=== PATIENT | male | born 1955 | race Caucasian/White ===

== ENCOUNTER → 2018-07-05 07:09 | Day surgery (SDC) | payer MEDICARE, MEDICAID ==
[~2018-07-05 07:09] MED LIST: Atracurium* 10 MG/ML 10 ML VIAL ONE; Buffered Lidocaine 0.9% SYRIN* 5 ML/SYR SYRINGE INTRADERM ONE; Buffered Lidocaine 0.9% SYRIN* 5 ML/SYR SYRINGE ONE; Dexamethasone TAB* 4 MG ONE; Dexamethasone TAB* 4 MG PO ONE; DiMENhydriNATE IV* 50 MG/ML VIAL IV PUSH PRN; DiMENhydriNATE IV* 50 MG/ML VIAL ONE; Famotidine IV* 10 MG/ML 2 ML (20 mg) IV ONE; Famotidine IV* 10 MG/ML 2 ML (20 mg) ONE; Flumazenil* 0.1 MG/ML 5 ML MDV ONE; Glycopyrrolate IV* 0.2 MG/ML 1 ML VIAL ONE; KETAMINE HCL* 50 MG/ML 10 ML VIAL ONE; Midazolam* 1 MG/ML 5 ML VIAL (5 MG) ONE; Morphine VIAL* 10 MG/ML 1 ML VIAL ONE; Morphine VIAL* 4 MG/ML VIAL (1 ml vial) IV PRN; Naloxone* 0.4 MG/ML 1 ML VIAL IV PRN; Neostigmine Methylsulfate* 1 MG/ML 10 ML VIAL (1 mg/ml) ONE; Ondansetron ODT TAB* 4 MG ONE; Ondansetron TAB* 4 MG PO ONE; PROCHLORPERAZINE INJ 5 MG/ML 2 ML VIAL IV PRN; Propofol* 10 MG/ML 20 ML BTL IV PUSH ONE; fentaNYL* 50 MCG/ML 2 ML VIAL (100 MCG VIAL) ONE; oxyCODONE/Acetamin 5/325 MG* TAB PO PRN
[2018-07-05] MEDS: fentaNYL* 50 MCG/ML 2 ML VIAL (100 MCG VIAL) IV PRN ×2 (10:43→10:51)
[2018-07-05 12:33] VITALS: BP 119/91
--- NOTE | 2018-07-06 02:08 | PRO ---
BRONCHOSCOPY REPORT: DATE OF PROCEDURE: 07/05/18 - [facility] PREPROCEDURAL DIAGNOSIS: Lung mass, lymphadenopathy. POSTPROCEDURAL DIAGNOSIS: Lung cancer. PROCEDURE PERFORMED: Bronchoscopy with endobronchial ultrasound-guided fine needle aspiration of the mediastinal nodes. ANESTHESIA: General anesthesia. ANESTHESIOLOGIST: Dr. Ash. DESCRIPTION OF PROCEDURE: Informed consent was obtained from the patient prior to the procedure after all the risks and benefits were thoroughly explained. Appropriate time-out was performed and agreed on by the attending staff. The patient was supine on the stretcher. Venodynes were placed and Luz Hugger was placed. The patient was intubated to facilitate general anesthesia with size 8.5 endotracheal tube. Flexible Olympus bronchoscope was inserted trough ET tube for airway inspection. Thick white secretions were noted in the trachea and the bronchial tree. Secretions were suctioned out. All airways on the right side were patent. No endobronchial lesions were noted on the right side. Bronchoscope was advanced into the left bronchial tree, which was then inspected. The patient was noted to have endobronchial narrowing, mucosal irregularity and endobronchial lesions in the left main stem bronchus at the level of left lower lobe bronchus. Left lower lobe bronchial segments were completely occluded and bronchoscope could not be advanced further. Thick white mucus plug was seen to be blocking airway leading to left lower lobe bronchus. Attempt at suctioning was resulting in bleeding of the mucosal lesions. The lesions started appearing about 2 to 3 cm from carinal level. Bronchoscope was then withdrawn and EBUS bronchoscope was then inserted. Given the left-sided lesion, station R4 lymph node which was significantly enlarged was accessed with 5 passes. Rapid onsite evaluation revealed malignant cells. Air-dried slides were also made. Specimen was placed in formalin for further testing. Bronchoscope was then withdrawn. Procedure was terminated. The patient tolerated the procedure very well. The patient was extubated and seen in Recovery in optimal condition. [id number]/[facility] #: [id number] [facility]
== END | disposition home or self-care (01) ==
LOC: OR 07:09
PROVIDERS: ATTEND Internal Medicine
DX: C77.1 Secondary and unspecified malignant neoplasm of intrathoracic lymph nodes (principal); J98.4 Other disorders of lung; Z87.891 Personal history of nicotine dependence; R06.02 Shortness of breath; I10 Essential (primary) hypertension; E11.9 Type 2 diabetes mellitus without complications; Z79.84 Long term (current) use of oral hypoglycemic drugs; E78.00 Pure hypercholesterolemia, unspecified; F41.8 Other specified anxiety disorders; Z51.0 Encounter for antineoplastic radiation therapy; C79.51 Secondary malignant neoplasm of bone; C34.92 Malignant neoplasm of unspecified part of left bronchus or lung; M25.111 Fistula, right shoulder; E11.40 Type 2 diabetes mellitus with diabetic neuropathy, unspecified
CPT/HCPCS: 77014; 77280; 77290; 77307; 77331; 77332; 77334; 77336; 77387; 77412; 78306; 81445; 88172; 88173; 88305; 88341; 88342; 88381; 99211; 99212; A9270-GY; A9503; G0463; J1240; J2250; J2270; J2704; J2710; J3010; J8540

== ENCOUNTER 2018-07-26 13:21 | Day surgery (SDC) | payer MEDICARE, MEDICAID ==
[~2018-07-26 13:21] MED LIST changes: -Atracurium* 10 MG/ML 10 ML VIAL ONE; -Buffered Lidocaine 0.9% SYRIN* 5 ML/SYR SYRINGE ONE; -Dexamethasone TAB* 4 MG ONE; -Dexamethasone TAB* 4 MG PO ONE; -DiMENhydriNATE IV* 50 MG/ML VIAL IV PUSH PRN; -DiMENhydriNATE IV* 50 MG/ML VIAL ONE; -Famotidine IV* 10 MG/ML 2 ML (20 mg) IV ONE; -Famotidine IV* 10 MG/ML 2 ML (20 mg) ONE; -Flumazenil* 0.1 MG/ML 5 ML MDV ONE; -Glycopyrrolate IV* 0.2 MG/ML 1 ML VIAL ONE; -KETAMINE HCL* 50 MG/ML 10 ML VIAL ONE; -Midazolam* 1 MG/ML 5 ML VIAL (5 MG) ONE; -Morphine VIAL* 10 MG/ML 1 ML VIAL ONE; -Morphine VIAL* 4 MG/ML VIAL (1 ml vial) IV PRN; -Naloxone* 0.4 MG/ML 1 ML VIAL IV PRN; -Neostigmine Methylsulfate* 1 MG/ML 10 ML VIAL (1 mg/ml) ONE; -Ondansetron ODT TAB* 4 MG ONE; -Ondansetron TAB* 4 MG PO ONE; -PROCHLORPERAZINE INJ 5 MG/ML 2 ML VIAL IV PRN; -Propofol* 10 MG/ML 20 ML BTL IV PUSH ONE; -fentaNYL* 50 MCG/ML 2 ML VIAL (100 MCG VIAL) ONE; -oxyCODONE/Acetamin 5/325 MG* TAB PO PRN
[2018-07-26] MEDS ORDERED: ceFAZolin 2 GM PREMIX in ORs 2 GM/50 ML BAG IVPB ONE (13:25)
[2018-07-26] MEDS ORDERED: Morphine PCA ADULT* 5 MG/ML 30 ML ONE ×2 (13:30→14:58)
[2018-07-26] MEDS ORDERED: Lidocaine 1% MPF wEPI 200,000* 30 ML SDV ONE (14:31)
[2018-07-26] MEDS ORDERED: fentaNYL* 50 MCG/ML 2 ML VIAL (100 MCG VIAL) ONE (14:40)
[2018-07-26] MEDS ORDERED: Midazolam* 1 MG/ML 2 ML VIAL (2 MG) ONE (14:40)
[2018-07-26] MEDS ORDERED: Propofol* 10 MG/ML 20 ML BTL IV PUSH ONE ×2 (14:53→15:37)
--- NOTE | 2018-07-26 16:01 | BRIEFOPN ---
Brief Operative Note - Surgery Procedures: Pre-OP Diagnoses: Lung Ca Post-op Diagnosis: same Procedure: Insertion of powerport Surgeon: Neha Asst: none Anethesia: local, MAC EBL: minimal IVF: minimal Specimen: none Drains: none 8Fr single lumen power port via L IJV
[2018-07-26 16:20] VITALS: BP 120/80
--- NOTE | 2018-07-27 10:37 | OP ---
CC: Dr. Wilma Musa; Dr. Star Vásquez; [facility] OPERATIVE REPORT: DATE OF OPERATION: 07/26/18 DATE OF : 51 SURGEON: Figueroa Solomon MD HEAVY LINE TECHNICIAN: None. ANESTHESIA: Local MAC. ECONOMIC HISTORIAN: Dr. Chinchilla. PRE-OP DIAGNOSIS: Lung cancer. POST-OP DIAGNOSIS: Lung cancer. OPERATIVE PROCEDURE: Insertion of PowerPort. DESCRIPTION OF PROCEDURE: The patient was identified in the preoperative area. He was brought to [facility] operating room, placed on the operating table in supine position. Preoperative antibiotics were gi manuel. Sequential devices were placed on bilateral lower extremities. Gentle sedation was delivered. The patient's left upper chest and neck were prepped and draped in the standard surgical fashion. A time-out was performed. The patient was placed in Trendelenburg position. Injection of lidocaine along the proposed site at the infraclavicular region was performed and I made an attempt to access the subclavian vein on the l eft. It did not prove simple and I decided to shift my attention to the neck quickly since the patie nt does have lung cancer and had previous radiation to this chest wall. Under ultrasound, we accessed the internal jugular vein. A wire was inserted appropriately into the superior vena cava. This was performed under fluoroscopy. We then dilated the vein and put a split-a way catheter. An 8-Macedonian tubing was tunneled from a separate incision site on the chest wall. This was brought in from the said chest wall incision to the stick site on the neck on the left. A pocket was also made at the site of the incision on the chest wall to hold the PowerPort. A tubing was placed through the split-away catheter, which was removed. Fluoroscopy assured its posit ioning. We then cut it to size, making sure it was in the appropriate spot in the superior vena cava and then attached it to the PowerPort along with the hub and placed into the pocket and sutured in t he pocket with 0-Prolene sutures. The wound was then irrigated and reapproximated with 3-0 Vicryl segura tures, followed by 4-0 Monocryl and placed a 4-0 Monocryl at the separate stick site of the neck and sterile dressing was applied. The patient tolerated the procedure well, was transferred to PACU in s table condition. [id number]/[facility] #: [id number]
== END 2018-07-26 17:13 | disposition home or self-care (01) ==
LOC: OR 13:21
PROVIDERS: ATTEND Surgery
DX: C34.12 Malignant neoplasm of upper lobe, left bronchus or lung (principal); Z87.891 Personal history of nicotine dependence; E11.9 Type 2 diabetes mellitus without complications; Z79.84 Long term (current) use of oral hypoglycemic drugs; I10 Essential (primary) hypertension; E78.00 Pure hypercholesterolemia, unspecified; F41.8 Other specified anxiety disorders
CPT/HCPCS: 76001; C1788; J0690; J1642; J2001; J2250; J2270; J2704; J3010

== ENCOUNTER 2018-09-10 17:36 | Inpatient (IN) | payer MEDICARE, MEDICAID ==
[2018-09-10] MEDS ORDERED: NS 0.9% 1000 ML*IV.FLUID IV ONE (17:58)
[2018-09-10 18:16] LABS: Hematocrit 35 % (42-52); Hemoglobin 11.8 g/dl (14.0-18.0); Mean Corpuscular HGB Conc 33 g/dl (31-36); Mean Corpuscular Hemoglobin 29 pg (27-31); Mean Corpuscular Volume 86 fL (80-94); Platelet Count 262 10^3/ul (150-450); Red Blood Count 4.11 10^6/ul (4.00-5.40); Red Cell Distribution Width 20 % (10.5-15); White Blood Count 9.1 10^3/ul (3.5-10.8)
[2018-09-10 18:28] LABS: Activated Partial Thrombo Time 33.9 seconds (26.0-36.3); INR 1.06 (0.77-1.02)
[2018-09-10 18:33] LABS: Albumin 3.5 g/dL (3.2-5.2); Albumin/Globulin Ratio 1.2 (1-3); BUN/Creatinine Ratio 22.8 (8-20); Calcium 9.2 mg/dL (8.6-10.3); EGFR Non-African American 98.4 (>60); Globulin 2.9 g/dL (2-4); Potassium 3.7 mmol/L (3.5-5.0); Total Bilirubin 0.7 mg/dL (0.2-1.0); Total Protein 6.4 g/dL (6.4-8.9)
--- OUTSIDE RECORDS SUMMARY | 2018-09-10 18:34 | XMS REPORT | Continuity of Care Document ---
:1955 External Reference #:[id number] Author Name Luzmaria Hernandez Care Team Providers Name Role Phone Wilma Musa MD Primary Care Physician Unavailable Payers Type Date Identification Numbers Payment Provider Subscriber Policy Number: [id number] Medicare Linda Canales PayID: [id number] [address] [place] [address] Expires: 2018 Policy Number: [id number] [place] Linda Canales PayID: [id number] [address] [place] [address] Policy Number: [id number] Medicaid Linda Canales Group Name: 1 1 [address] PayID: [id number] [place] [address] Advance Directives Description No Information Available Problems Date Description Provider Status Onset: 06/27/2018 Pathological fracture, right shoulder, Garth Martin MD Active initial encounter for fracture Onset: 09/05/2018 Low back pain Garth Martin MD Active Family History Date Family Member(s) Problem(s) Comments General Diabetes mother General Hypertension Mother Father Lung Cancer Father due to Lung Cancer () Father Smoker Mother Hypertension Mother due to Diabetes () Mother Diabetes Siblings 1 1 sister, was murdered Social History Type Date Description Comments Sex Unknown Lives With Spouse Occupation Retired Tobacco Use Start: Unknown End: Former Cigarette Smoker Smoked 1 ppd for 45 Unknown years Smoking Status Reviewed: 09/05/18 Former Cigarette Smoker Smoked 1 ppd for 45 years ETOH Use Never used alcohol Tobacco Use Start: 12/01/16 Patient is a former End: Unknown smoker Recreational Drug Use Denies Drug Use Exercise Type/Frequency Exercises sporadically Allergies, Adverse Reactions, Alerts Description No Known Drug Allergies Medications Medication Date Status Form Strength Qnty SIG Indications Ordering Provider Metformin HCL / Active Tablets 500mg Take 2 Tablets Unknown 0000 By Mouth Two Times Daily With Meals Pravastatin / Active Tablets 40mg take one Unknown Sodium 0000 tablet by mouth at bedtime Glyxambi / Active Tablets 10-5mg qd Unknown 0000 Aspirin / Active Tablets 81mg 1 by mouth Unknown 0000 DR every day Zofran / Active Tablets 8mg one by mouth Unknown 0000 every 6 hours as needed for nausea Oxycodone-Paulie / Active Tablets 10-325mg take 1 tablet Unknown taminophen 0000 by mouth every 6 hours as needed for pain Miralax / Active Packet 3350NF 17 gram with Unknown 0000 h20 once a day prn Morphine / Active Tablets 15mg take 1 tab by Unknown Sulfate 0000 mouth every 12 hours as needed for breakthrough pain Morphine / Active Tablets 30mg 1 tab bid (not Unknown Sulfate 0000 taking currently) Alfuzosin HCL / Active Tablets 10mg Take 1 Tablet Unknown ER 0000 ER 24HR By Mouth AT Bedtime Naproxen / Active Tablets 500mg 1 by mouth Unknown 0000 twice a day as needed pain Oxycodone HCL / Hx Tablets 5mg 1 tabs by Unknown 0000 - mouth every 07/14/ 4-6 hours as 2018 needed Immunizations Description No Information Available Vital Signs Date Vital Result Comment 09/05/2018 10:34am Height 74 inches 6'2" Weight 200.00 lb BP Systolic 124 mmHg BP Diastolic 66 mmHg Respiratory Rate 17 /min Body Temperature 96.0 F Pain Level 8 BMI (Body Mass Index) 25.7 kg/m2 08/06/2018 1:13pm Height 74 inches 6'2" Weight 200.00 lb BP Systolic 128 mmHg BP Diastolic 70 mmHg Respiratory Rate 18 /min Pain Level 6 BMI (Body Mass Index) 25.7 kg/m2 07/22/2018 11:06am Height 74 inches 6'2" Weight 199.00 lb Heart Rate 84 /min BP Systolic Sitting 112 mmHg BP Diastolic Sitting 78 mmHg Respiratory Rate 18 /min Body Temperature 98.0 F BMI (Body Mass Index) 25.5 kg/m2 07/15/2018 11:27am Height 74 inches 6'2" Weight 199.00 lb Heart Rate 72 /min BP Systolic Sitting 104 mmHg BP Diastolic Sitting 62 mmHg Respiratory Rate 14 /min O2 % BldC Oximetry 98 % BMI (Body Mass Index) 25.5 kg/m2 06/28/2018 10:58am Height 74 inches 6'2" Weight 202.12 lb Heart Rate 92 /min BP Systolic Sitting 112 mmHg BP Diastolic Sitting 72 mmHg Respiratory Rate 14 /min O2 % BldC Oximetry 98 % BMI (Body Mass Index) 25.9 kg/m2 Neck Circumference in inches 17.5 06/27/2018 10:28am Height 74 inches 6'2" Weight 200.00 lb Heart Rate 80 /min BP Systolic 142 mmHg BP Diastolic 88 mmHg Body Temperature 97.2 F Pain Level 10 BMI (Body Mass Index) 25.7 kg/m2 Results Test Date Facility Test Result H/L Range Note Laboratory test 07/26/2018 [facility] Point of Care 190 mg/dL High 70-100 [address] [place] [address] [phone] Laboratory test 07/05/2018 [facility] Point of Care 193 mg/dL High 70-100 [address] [place] [address] [phone] Laboratory test 07/05/2018 [facility] Cytology SEE RESULT [address] [employer] [place] [address] [phone] Lung Cancer 07/05/2018 [facility] LNGPR Result See Comment [address] [address] [phone] LNGPR Result See Comment 5 LNGPR Interpretation See Comment 6 LNGPR Additional Information See Comment 7 LNGPR Specimen Cells LNGPR Tissue Id [id number] LNGPR Released By See Comment 8 Laboratory test 07/05/2018 [facility] Point of Care 204 mg/dL High 70-100 [address] [place] [address] [phone] 1 Toe Laster: [id number] 2 Toe Laster: [id number] 3 SEE RESULT BELOW Name: LINDA CANALES : [address]: Ira Mariano MD Acct: [id number] Unit: [id number] AGE: 63 Location: OR Re07/05/18 SEX: M Status: REG SDC SPEC: [id number] ELIOT: 07/05/[address] [facility] [address]: Ira Mariano MD REQ: [id number] RECD: 07/05/18 STATUS: SOUT _ ORDERED: FNA-IMG GUID BX, LEVEL 4, CYTO ADEQ-1ST P, IMMUNO-FIRST, IMMUNO- ADDL/2 Lung Panel with Rearrangement Tumor has been performed at [place], [place]. 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 specimen is ALK, BRAF, EGFR, ERBB2, HRAS, KRAS, MET, and NRAS wild-type). No reportable fusions were identified involving the ALK, RET, ROS1, or NTRK1 genes. Interpretation See note [1] below. ASSOCIATIONS BETWEEN GENE MUTATIONS/REARRANGEMENTS AND LUNG CANCER Current data suggests that the efficacy of targeted therapies in patients with non-small cell lung cancer is limited to tumors with mutations or rearrangements in certain genes. Thus, the absence of a detectable mutation and rearrangement within this tumor suggests that targeted therapies to the listed genes may have limited therapeutic value for this patient (1-7). REFERENCES 1. Mol Diagn. 2013 Mar;15(4):415-53 (PMID 89715850) 2. Oncologist. 2016 Feb;21(6):684-91 (PMID [id number]) 3. Lancet Oncol. 2016 January;17(5):642-50 (PMID 68241108) 4. Lancet Oncol. 2016 Mar;17(7):984-93 (PMID 18401153) 5. Cancer Discov. 2014;5(8):842-9 (PMID 24601467) 6. Cancer Discov. 2014;5(8):850-9 (PMID 25501919) 7. Nina. Med. 2013 Jul;19(11):1469-03 (PMID 20913301) CONTINUED ON NEXT PAGE DEPARTMENT OF PATHOLOGY, [address] [place] [address] Imer Arechiga M.D. Director [facility] # [id number] RUN DATE: 07/25/18 [facility] LAB LIVE PAGE 2 Patient: LINAD CANALES [id number] (Continued) ADDENDUM (Continued) ADDITIONAL INFORMATION Microscopic examination was performed by a pathologist to identify areas of tumor for enrichment by macrodissection. Next generation sequencing was performed to test for the presence of a mutation within targeted regions of the following genes: EGFR , BRAF, KRAS, HRAS, NRAS, ALK, ERBB2, and MET (exon 14 skipping mutations only). Next generation sequencing was performed to test for the presence of a rearrangement/fusion involving the ALK, RET, ROS1 or NTRK1 genes. Mutation nomenclature is based on build GRCh37 (hg19). Rearrangement nomenclature is based on a custom reference sequence using GRCh37 (hg19). For details about gene reference transcripts (GenBank accession numbers) and additional information about this test, see [email or web address] - A First of Its Kind Flip Flop (Test ID LNGPR). CLINICAL CORRELATIONS Test results should be interpreted in context of clinical findings, tumor sampling, histopathology, and other laboratory data. If results obtained do not match other clinical or laboratory findings, please contact the laboratory for possible interpretation. Misinterpretation of results may occur if the information provided is inaccurate or incomplete. This test cannot differentiate between somatic and germline alterations. Additional testing may be necessary to clarify the significance of results if there is a potential hereditary risk. The presence or absence of a mutation or fusion may not be predictive of response to therapy in all patients. TECHNICAL LIMITATIONS This test does not detect large insertions, deletions, or duplications or genomic copy number variants (such as amplification). This assay has been shown to detect >99% of single base substitutions and >99 % of deletions/insertions (up to 50 bp) at >5% allele frequency, respectively. A negative (wild type) result does not rule out the presence of a mutation or rearrangement resulting in a targeted fusion that may be present but below the limits of detection of this assay. The analytical sensitivity of this assay is 5% with a minimum coverage of 100X for mutations and 5% with a minimum of 30 targeted fusion reads for fusions. Rare polymorphisms may be present that could lead to false negative or false positive results. CONTINUED ON NEXT PAGE DEPARTMENT OF PATHOLOGY, [address] [place] [address] Imer Arechiga M.D. Director [facility] # [id number] RUN DATE: 07/25/18 [facility] LAB LIVE PAGE 3 Patient: LINDA CANALES J [id number] (Continued) ADDENDUM (Continued) Additional Information CLINICAL TRIALS Possible clinical trials of benefit for this patient can befound at the following sites: 1) ClinicalTrials.gov:www.clinicaltrials.gov/ct2/search/advanced 2) [facility]: www.[place]/research/clinical-trials/ 3) National Cancer Royal:www.cancer.gov/clinicaltrials/search Specimen: Cells Tissue ID: [id number] Released By Jessica France M.D. Addendum Signed (signature on file) Frida Guerrero MD 05/04 1123 Addendum: The following immunochemical stains are performed with appropriate controls on formalin fixed cell block material. CK5/6 positive P63 focal positive TTF-1 negative These findings support the above render diagnosis. Additional studies including gene sequencing studies for targeted therapies on air dried smears is pending and will be reported in an addendum. Addendum Signed (signature on file) Imer Arechiga MD 1440 FINAL DIAGNOSIS Lymph node, R4, Endobronchial ultrasound guided fine needle aspiration: --Malignant. CONTINUED ON NEXT PAGE DEPARTMENT OF PATHOLOGY, [address] [place] [address] Imer Arechiga M.D. Director [facility] # [id number] RUN DATE: 07/25/18 [facility] LAB LIVE PAGE 4 Patient: LINDA CANALES [id number] (Continued) FINAL DIAGNOSIS (Continued) --Metastatic keratinizing squamous cell carcinoma. A cell block was prepared in the evaluation of this specimen. Smears and cell block reveal similar findings. 1. LYMPH NODE - US GUIDED ENDOBRONCHIAL R-4 LYMPH NODE FINE NEEDLE ASPIRATION CLINICAL HISTORY R-4 Lymph node. IMMEDIATE INTERPRETATION Pass 1 2-adequate, pass 3-5 for additional material GROSS DESCRIPTION US guided endobronchial fine needle aspiration x 5 pass(es) with 4 alcohol fixed slides, 7 Air dried slide(s) and needle rinse in formalin for cell block. Signed by and Reported on: Frida Guerrero MD 07/05/18 1558 END OF REPORT DEPARTMENT OF PATHOLOGY, [address] [place] [address] Imer Arechiga M.D. 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 specimen is ALK, BRAF, EGFR, ERBB2, HRAS, KRAS, MET, and NRAS wild-type). No reportable fusions were identified involving the ALK, RET, ROS1, or NTRK1 genes. 6 ASSOCIATIONS BETWEEN GENE MUTATIONS/REARRANGEMENTS AND LUNG CANCER Current data suggests that the efficacy of targeted therapies in patients with non-small cell lung cancer is limited to tumors with mutations or rearrangements in certain genes. Thus, the absence of a detectable mutation and rearrangement within this tumor suggests that targeted therapies to the listed genes may have limited therapeutic value for this patient (1-7). REFERENCES 1. Mol Diagn. 2013 Kunal;15(4):415-53 (PMID 40163780) 2. Oncologist. 2016 Feb;21(6):684-91 (PMID 85290348) 3. Lancet Oncol. 2016 January;17(5):642-50 (PMID 96004377) 4. Lancet Oncol. 2016 Mar;17(7):984-93 (PMID 84762985) 5. Cancer Discov. 2014;5(8):842-9 (PMID 27552320) 6. Cancer Discov. 2014;5(8):850-9 (PMID 25922405) 7. Nina. Med. 2012;19(11):3699-80 (PMID 00303784) ADDITIONAL INFORMATION Microscopic examination was performed by a pathologist to identify areas of tumor for enrichment by macrodissection. Next generation sequencing was performed to test for the presence of a mutation within targeted regions of the following genes: EGFR, BRAF, KRAS, HRAS, NRAS, ALK, ERBB2, and MET (exon 14 skipping mutations only). Next generation sequencing was performed to test for the presence of a rearrangement/fusion involving the ALK, RET, ROS1 or NTRK1 genes. Mutation nomenclature is based on build GRCh37 (hg19). Rearrangement nomenclature is based on a custom reference sequence using GRCh37 (hg19). For details about gene reference transcripts (GenBank accession numbers) and additional information about this test, see [email or web address] (Test ID LNGPR). CLINICAL CORRELATIONS Test results should be interpreted in context of clinical findings, tumor sampling, histopathology, and other laboratory data. If results obtained do not match other clinical or laboratory findings, please contact the laboratory for possible interpretation. Misinterpretation of results may occur if the information provided is inaccurate or incomplete. This test cannot differentiate between somatic and germline alterations. Additional testing may be necessary to clarify the significance of results if there is a potential hereditary risk. The presence or absence of a mutation or fusion may not be predictive of response to therapy in all patients. TECHNICAL LIMITATIONS This test does not detect large insertions, deletions, or duplications or genomic copy number variants (such as amplification). This assay has been shown to detect >99% of single base substitutions and >99% of deletions/insertions (up to 50 bp) at >5% allele frequency, respectively. A negative (wild type) result does not rule out the presence of a mutation or rearrangement resulting in a targeted fusion that may be present but below the limits of detection of this assay. The analytical sensitivity of this assay is 5% with a minimum coverage of 100X for mutations and 5% with a minimum of 30 targeted fusion reads for fusions. Rare polymorphisms may be present that could lead to false negative or false positive results. TEST CLASSIFICATION This test was developed and its performance characteristics determined by [facility] in a manner consistent with CLIA requirements. This test has not been cleared or approved by the U.S. Food and Drug Administration. 7 CLINICAL TRIALS Possible clinical trials of benefit for this patient can be found at the following sites: 1) ClinicalTrials.gov: www.clinicaltrials.gov/ct2/search/advanced 2) [facility]: www.[facility]/research/clinical-trials/ 3) National Cancer Royal: www.cancer.gov/clinicaltrials/search 8 RESULT: Jessica France M.D. Test Performed by: [place] [address] 9 Toe Laster: [id number] Procedures Date Code Description Status 07/26/2018 01713 Fluoroscopic Guidance For Cent Completed 07/26/2018 49249 Ultrasound Guidance For Vascular Access Completed 07/26/2018 73538 Insertion Tunneled Cent Venous Cathr W Subcut Port 5 Yrs Completed Or Oldr 07/05/2018 50577 With Endobronchial Ultrasound Guided Completed Encounters Type Date Location Provider Dx Diagnosis Office Visit 08/06/2018 Orthopedic Garth Martin, M84.411D Pathological 1:15p [facility] fracture, r shoulder, subs for fx w routn heal Office Visit 07/22/2018 Surgical Figueroa Solomon, C34.12 Malignant neoplasm 11:00a [facility], FACS of upper lobe, left bronchus or lung Office Visit 07/15/2018 Pulmonology And Ira Mariano, C34.90 Malignant neoplasm 11:45a [facility] [place] [facility] uns bronchus or lung Z87.891 Personal history of nicotine dependence Office Visit 06/28/2018 11:00a Pulmonology And Ira R59.0 Localized [facility] MD García enlarged lymph [employer] nodes J98.4 Other disorders of lung Z87.891 Personal history of nicotine dependence Office Visit 06/27/2018 Orthopedic Gatrh Martin, M84.411A Pathological 10:00a Services Of fracture, right C.M.A. shoulder, init for fx Plan of Treatment 09/05/2018 - Garth Martin, MDM84.411D Pathological fracture, right shoulder, subsequent encounterReferral:Star Willett MD, Surgery,OrthopedicCarmody, MD Ranjana, Surgery,OrthopedicFollow up:Follow up: as rxybmtH17.5 Low back painNew Xrays:SP Lumbarsacral 4+ VWS, Ordered: 09/05/18
[2018-09-10] MEDS ORDERED: Acetaminophen TAB* 325 MG PO ONE (19:16)
[2018-09-10 19:36] LABS: Immature Granulocytes 9 % (0-9); Monocytes % 10 %; Neutrophil % 75 %
[2018-09-10 19:37] LABS: Lymphocytes % 6 %
[2018-09-10 19:39] LABS: Polychromasia 1+
[2018-09-10 19:44] LABS: ABS Neutrophils 7.6 10^3/ul (1.5-7.7)
[2018-09-10] MEDS ORDERED: Piperacillin/Tazobac ADVAN(*) 3.375 GM in NS 0.9% 100 ML* 100 ML IVPB ONE ×2 (19:46→21:26)
[2018-09-10] MEDS ORDERED: Vancomycin(*) 1,000 MG VIAL IVPB SCH (20:00)
--- NOTE | 2018-09-10 20:11 | ED ---
HPI Febrile Illness - HPI Summary HPI Summary: Patient with history of lung cancer, bone cancer receiving chemotherapy treatment complains of feeling lightheaded, nausea and fever up to 101 starting today. Triage blood pressure very low at 67/51. Denies cough, sore throat, COLON , neck stiffness, CP, SOB, V/D, abdominal pain, change in urine, change in BM. Medical history is stage IV lung cancer, bone cancer. Patient receiving chemotherapy, due for third chemotherapy treatment tomorrow. Chemotherapy treatment every 2 weeks. No antipyretic taken today. - History of Current Complaint Chief Complaint: EDFever Time Seen by Provider: 09/10/18 17:47 Hx Obtained From: Patient, Family/Electrical Worker Onset/Duration: Started Hours Ago Timing: Constant Initial Severity: Moderate Current Severity: Moderate Pain Scale Used: 0-10 Numeric Aggravating Factors: Nothing Alleviating Factors: Nothing - Chronic pain Associated Signs and Symptoms: Nausea - Allergy/Home Medications Allergies/Adverse Reactions: Allergies Allergy/AdvReac Type Severity Reaction Status Date / Time No Known Allergies Allergy Verified 07/26/18 14:01 PMH/Surg Hx/FS Hx/Imm Hx Endocrine/Hematology History: Reports: Hx Diabetes - type 2 Denies: Hx Bone Marrow Disease, Hx Sickle Cell Disease, Hx Thyroid Disease, Hx Anemia Cardiovascular History: Reports: Hx Hypertension Denies: Hx Pacemaker/ICD Respiratory History: Reports: Hx Chronic Obstructive Pulmonary Disease (COPD), Other Respiratory Problems/Disorders - MALIGNANT NEOPLASM LEFT LUNG Denies: Hx Asthma GI History: Denies: Hx Ulcer Musculoskeletal History: Reports: Other Musculoskeletal History - BONE LESION RIGHT SHOULDER Denies: Hx Osteoporosis Sensory History: Reports: Hx Contacts or Glasses - GLASSES Denies: Hx Cataracts, Hx Glaucoma, Hx Hearing Aid Opthamlomology History: Reports: Hx Contacts or Glasses - GLASSES Denies: Hx Cataracts, Hx Glaucoma Neurological History: Reports: Hx Migraine - once in a while, Hx Nerve Disease - diabetic neuropathy Comment Only: Other Neuro Impairments/Disorders - PERIPHERAL NEUROPATHY R/T DM Psychiatric History: Reports: Hx Anxiety, Hx Depression Denies: Hx Panic Disorder - Cancer History Cancer Type, Location and Year: BONE Hx Chemotherapy: No - Surgical History Surgery Procedure, Year, and Place: TONSILECTOMY, TEETH EXTRACTED Hx Anesthesia Reactions: No Infectious Disease History: No Infectious Disease History: Denies: Hx Clostridium Difficile, Hx Hepatitis, Hx Human Immunodeficiency Virus (HIV), Hx of Known/Suspected MRSA, Hx Shingles, Hx Tuberculosis, Traveled Outside the [place] in Last 30 Days - Social History Alcohol Use: None Substance Use Type: Reports: None Substance Use Comment - Amount & Last Used: morphine and oxycodone for cancer pain Hx Tobacco Use: Yes Smoking Status (MU): Former Smoker Type: Cigarettes Amount Used/How Often: 1ppd 45 years Length of Time of Smoking/Using Tobacco: 45 YRS Have You Smoked in the Last Year: No Review of Systems Positive: Fever Eyes: Negative ENT: Negative Cardiovascular: Negative Respiratory: Negative Gastrointestinal: Negative Genitourinary: Negative Musculoskeletal: Negative Skin: Negative Neurological: Negative Psychological: Normal All Other Systems Reviewed And Are Negative: Yes Physical Exam - Summary Physical Exam Summary: Physical exam unremarkable. Triage Information Reviewed: Yes Vital Signs On Initial Exam: Initial Vitals Temp Pulse Resp BP Pulse Ox 98.1 F 114 20 63/43 94 09/10/18 17:39 09/10/18 17:39 09/10/18 17:39 09/10/18 17:39 09/10/18 17:39 Vital Signs Reviewed: Yes Appearance: Positive: Well-Appearing Skin: Positive: Warm Head/Face: Positive: Normal Head/Face Inspection Eyes: Positive: Normal ENT: Positive: Normal ENT inspection Neck: Positive: Supple Respiratory/Lung Sounds: Positive: Clear to Auscultation Cardiovascular: Positive: Normal Abdomen Description: Positive: Nontender Musculoskeletal: Positive: Normal Neurological: Positive: Normal Psychiatric: Positive: Normal AVPU Assessment: Alert - [place] Coma Scale Best Eye Response: 4 - Spontaneous Best Motor Response: 6 - Obeys Commands Best Verbal Response: 5 - Oriented Coma Scale Total: 15 Diagnostics - Vital Signs Vital Signs Temp Pulse Resp BP Pulse Ox 09/10/18 19:10 100.6 F 09/10/18 18:46 103 20 80/64 95 09/10/18 18:38 103 21 79/59 97 09/10/18 18:28 103 20 75/52 97 09/10/18 18:22 104 23 66/47 96 09/10/18 18:21 107 19 66/48 96 09/10/18 18:19 106 25 65/47 96 09/10/18 18:16 109 25 67/45 97 09/10/18 18:01 108 25 69/54 96 09/10/18 18:00 107 21 95 09/10/18 17:57 108 64/48 96 09/10/18 17:56 109 70/54 96 09/10/18 17:52 112 95 09/10/18 17:47 67/51 09/10/18 17:39 98.1 F 114 20 63/43 94 - Laboratory Lab Results: Lab Results 09/10/18 09/10/18 09/10/18 Range/Units 17:49 18:08 18:08 WBC 9.1 (3.5-10.8) 10^3/ul RBC 4.11 (4.00-5.40) 10^6/ul Hgb 11.8 L (14.0-18.0) g/dl Hct 35 L (42-52) % MCV 86 (80-94) fL MCH 29 (27-31) pg MCHC 33 (31-36) g/dl RDW 20 H (10.5-15) % Plt Count 262 (150-450) 10^3/ul MPV 7.0 L (7.4-10.4) fL Neut % (Auto) Not Reportable Lymph % (Auto) Not Reportable [place] % (Auto) Not Reportable Eos % (Auto) Not Reportable Baso % (Auto) Not Reportable Absolute Neuts (auto) Not Reportable Absolute Lymphs (auto) Not Reportable Absolute Monos (auto) Not Reportable Absolute Eos (auto) Not Reportable Absolute Basos (auto) Not Reportable Absolute Nucleated RBC Not Reportable Immature Gran % 9 (0-9) % Neutrophils % 75 % Band Neutrophils % 9 H (0-8) % Lymphocytes % 6 % Reactive Lymphs % Not Reportable Monocytes % 10 % Nucleated RBC % Not Reportable Abs Neuts (Manual) 7.6 (1.5-7.7) 10^3/ul Abs Lymphs (Manual) 0.6 L (1.0-4.8) 10^3/ul Abs Monocytes (Manual) 0.9 H (0-0.8) 10^3/ul Normal RBC Morphology Not Reportable Polychromasia 1+ Anisocytosis 2+ INR (Anticoag Therapy) 1.06 H (0.77-1.02) APTT 33.9 (26.0-36.3) seconds Sodium (135-145) mmol/L Potassium (3.5-5.0) mmol/L Chloride (101-111) mmol/L Carbon Dioxide (22-32) mmol/L Anion Gap (2-11) mmol/L BUN (6-24) mg/dL Creatinine (0.67-1.17) mg/dL Est GFR ( Amer) (>60) Est GFR (Non-Af Amer) (>60) BUN/Creatinine Ratio (8-20) Glucose (70-100) mg/dL POC Glucose (mg/dL) 262 H (70-100) mg/dL Lactic Acid (0.5-2.0) mmol/L Calcium (8.6-10.3) mg/dL Total Bilirubin (0.2-1.0) mg/dL AST (13-39) U/L ALT (7-52) U/L Alkaline Phosphatase (34-104) U/L Troponin I (<0.04) ng/mL C-Reactive Protein (<8.01) mg/L B-Natriuretic Peptide (<=100) pg/mL Total Protein (6.4-8.9) g/dL Albumin (3.2-5.2) g/dL Globulin (2-4) g/dL Albumin/Globulin Ratio (1-3) Influenza A (Rapid) (Negative) Influenza B (Rapid) (Negative) 09/10/18 09/10/18 09/10/18 Range/Units 18:08 18:08 18:08 WBC (3.5-10.8) 10^3/ul RBC (4.00-5.40) 10^6/ul Hgb (14.0-18.0) g/dl Hct (42-52) % MCV (80-94) fL MCH (27-31) pg MCHC (31-36) g/dl RDW (10.5-15) % Plt Count (150-450) 10^3/ul MPV (7.4-10.4) fL Neut % (Auto) Lymph % (Auto) [place] % (Auto) Eos % (Auto) Baso % (Auto) Absolute Neuts (auto) Absolute Lymphs (auto) Absolute Monos (auto) Absolute Eos (auto) Absolute Basos (auto) Absolute Nucleated RBC Immature Gran % (0-9) % Neutrophils % % Band Neutrophils % (0-8) % Lymphocytes % % Reactive Lymphs % Monocytes % % Nucleated RBC % Abs Neuts (Manual) (1.5-7.7) 10^3/ul Abs Lymphs (Manual) (1.0-4.8) 10^3/ul Abs Monocytes (Manual) (0-0.8) 10^3/ul Normal RBC Morphology Polychromasia Anisocytosis INR (Anticoag Therapy) (0.77-1.02) APTT (26.0-36.3) seconds Sodium 130 L (135-145) mmol/L Potassium 3.7 (3.5-5.0) mmol/L Chloride 98 L (101-111) mmol/L Carbon Dioxide 23 (22-32) mmol/L Anion Gap 9 (2-11) mmol/L BUN 18 (6-24) mg/dL Creatinine 0.79 (0.67-1.17) mg/dL Est GFR ( Amer) 119.1 (>60) Est GFR (Non-Af Amer) 98.4 (>60) BUN/Creatinine Ratio 22.8 H (8-20) Glucose 268 H (70-100) mg/dL POC Glucose (mg/dL) (70-100) mg/dL Lactic Acid 1.6 (0.5-2.0) mmol/L Calcium 9.2 (8.6-10.3) mg/dL Total Bilirubin 0.70 (0.2-1.0) mg/dL AST 8 L (13-39) U/L ALT 8 (7-52) U/L Alkaline Phosphatase 71 (34-104) U/L Troponin I 0.01 (<0.04) ng/mL C-Reactive Protein 150.00 H (<8.01) mg/L B-Natriuretic Peptide 126 H (<=100) pg/mL Total Protein 6.4 (6.4-8.9) g/dL Albumin 3.5 (3.2-5.2) g/dL Globulin 2.9 (2-4) g/dL Albumin/Globulin Ratio 1.2 (1-3) Influenza A (Rapid) (Negative) Influenza B (Rapid) (Negative) 09/10/18 Range/Units 18:27 WBC (3.5-10.8) 10^3/ul RBC (4.00-5.40) 10^6/ul Hgb (14.0-18.0) g/dl Hct (42-52) % MCV (80-94) fL MCH (27-31) pg MCHC (31-36) g/dl RDW (10.5-15) % Plt Count (150-450) 10^3/ul MPV (7.4-10.4) fL Neut % (Auto) Lymph % (Auto) [place] % (Auto) Eos % (Auto) Baso % (Auto) Absolute Neuts (auto) Absolute Lymphs (auto) Absolute Monos (auto) Absolute Eos (auto) Absolute Basos (auto) Absolute Nucleated RBC Immature Gran % (0-9) % Neutrophils % % Band Neutrophils % (0-8) % Lymphocytes % % Reactive Lymphs % Monocytes % % Nucleated RBC % Abs Neuts (Manual) (1.5-7.7) 10^3/ul Abs Lymphs (Manual) (1.0-4.8) 10^3/ul Abs Monocytes (Manual) (0-0.8) 10^3/ul Normal RBC Morphology Polychromasia Anisocytosis INR (Anticoag Therapy) (0.77-1.02) APTT (26.0-36.3) seconds Sodium (135-145) mmol/L Potassium (3.5-5.0) mmol/L Chloride (101-111) mmol/L Carbon Dioxide (22-32) mmol/L Anion Gap (2-11) mmol/L BUN (6-24) mg/dL Creatinine (0.67-1.17) mg/dL Est GFR ( Amer) (>60) Est GFR (Non-Af Amer) (>60) BUN/Creatinine Ratio (8-20) Glucose (70-100) mg/dL POC Glucose (mg/dL) (70-100) mg/dL Lactic Acid (0.5-2.0) mmol/L Calcium (8.6-10.3) mg/dL Total Bilirubin (0.2-1.0) mg/dL AST (13-39) U/L ALT (7-52) U/L Alkaline Phosphatase (34-104) U/L Troponin I (<0.04) ng/mL C-Reactive Protein (<8.01) mg/L B-Natriuretic Peptide (<=100) pg/mL Total Protein (6.4-8.9) g/dL Albumin (3.2-5.2) g/dL Globulin (2-4) g/dL Albumin/Globulin Ratio (1-3) Influenza A (Rapid) Negative (Negative) Influenza B (Rapid) Negative (Negative) Result Diagrams: 09/10/18 18:08 09/10/18 18:08 Lab Statement: Any lab studies that have been ordered have been reviewed, and results considered in the medical decision making process. Course/Dx - Course Course Of Treatment: Patient with history of lung cancer, bone cancer receiving chemotherapy treatment complains of feeling lightheaded, nausea and fever up to 101 starting today. Triage blood pressure very low at 67/51. Denies cough, sore throat, COLON, neck stiffness, CP, SOB, V/D, abdominal pain, change in urine, change in BM. Medical history is stage IV lung cancer, bone cancer. Patient receiving chemotherapy, due for third chemotherapy treatment tomorrow. Chemotherapy treatment every 2 weeks. No antipyretic taken today. Physical exam unremarkable. Patient hypotensive. Vital signs otherwise within normal limits. EKG of 268. Lactic normal. Normal white count. EKG is a sinus tachycardia. Chest x-ray indicates consolidation left lower lobe consistent with diagnosis of cancer, possible superimposed pneumonia. Patient remains hypotensive after 3 L. Patient has history of lung cancer followed by Dr. Vásquez. Discussed patient with Dr. Vásquez, no known source of fever. Patient remains consistently hypotensive. Dr. Vásquez recommended getting cortisone level , TSH and freeT4 levels, and administering dexamethasone 6 mg IV x 1. Admitted to [facility] by Dr. Vásquez. - Diagnoses Provider Diagnoses: Hypotension, Fever Discharge - Sign-Out/Discharge Documenting (check all that apply): Patient Departure - Discharge Plan Condition: Fair Disposition: ADMITTED TO [facility] - Billing Disposition and Condition Condition: FAIR Disposition: Admitted to [facility]
[2018-09-10] MEDS: Dexamethasone IV* 4 MG/ML 1 ML (4 MG) IV SLOW PU SCH (20:56)
[2018-09-10] MEDS ORDERED: methylPREDNISolone SOD 40 MG* 1 ML VIAL IV SCH (21:00)
[2018-09-10] MEDS ORDERED: Dexamethasone IV* 6 MG in NS 0.9% 50 ML* 50 ML IVPB SCH (21:00)
[2018-09-10] MEDS ORDERED: Vancomycin(*) 1,250 MG IV x ONCE IVPB ONE ×2 (21:00)
[2018-09-10] MEDS ORDERED: Acetaminophen TAB* 325 MG PO PRN (21:03)
[2018-09-10] MEDS ORDERED: Ondansetron INJ* 2 MG/ML VIAL IV PRN (21:03)
[2018-09-10] MEDS ORDERED: oxyCODONE/Acetamin 5/325 MG* TAB PO PRN (21:03)
[2018-09-10] MEDS ORDERED: Magnesium Hydroxide LIQ* 30 ML UDC PO PRN (21:03)
[2018-09-10 21:05] LABS: TSH (Thyroid Stimulating Horm) 3.2 mcIU/mL (0.34-5.60)
[2018-09-10 21:07] LABS: Free T4 0.88 ng/dL (0.61-1.12)
[2018-09-10] MEDS ORDERED: Dextrose 50% Syringe 50 ML* 25 GM/50 ML SYRINGE IV PUSH PRN (21:13)
[2018-09-10] MEDS ORDERED: NS 0.9% 1000 ML* 1,000 ML IV SCH (21:15)
[2018-09-10] MEDS ORDERED: Zosyn per Pharmacy* NOTE FOLLOW UP SCH (22:00)
[2018-09-10] MEDS: NS 0.9% 1000 ML* 1,000 ML IV SCH (22:01)
[2018-09-10 22:08] LABS: Testosterone 73.19 ng/dL (240-950)
[2018-09-10 22:42] LABS: Urine Appearance Cloudy; Urine Bacteria Absent (Absent); Urine Bilirubin Negative (Negative); Urine Blood 3+ (Negative); Urine Color Yellow; Urine Glucose 3+(>=500 mg/dL) (Negative); Urine Ketones Negative (Negative); Urine Nitrite Negative (Negative); Urine Protein 1+(30 mg/dL) (Negative); Urine Red Blood Cell 3+(>10/hpf) (Absent); Urine Specific Gravity 1.036 (1.010-1.030); Urine Urobilinogen Negative (Negative); Urine White Blood Cell Absent (Absent)
[2018-09-10] MEDS: Enoxaparin(*) 40 MG/0.4 ML SYR SUBCUT SCH (22:52)
--- NOTE | 2018-09-10 23:21 | HP ---
HISTORY AND PHYSICAL: DATE OF ADMISSION: 09/10/18 REASON FOR ADMISSION: Hypotension. IDENTIFICATION: A 63-year-old male with metastatic oon-xkcxt-tyac lung cancer, currently on chemotherapy with carboplatin, paclitaxel, and pembrolizumab. HISTORY OF PRESENT ILLNESS: Mr. Canales is a 63-year-old male on chemotherapy with carboplatin, pemetrexed, and paclitaxel. He has had 2 cycles and is scheduled for cycle #3 tomorrow. Seen in clinic last week and was doing reasonably well. He has metastatic disease to the shoulder and has significant shoulder pain, but that was stable. He did complain of increase diffuse muscle aches including some hip pain and knee pain. He began feeling poorly over the weekend. On Sunday, he had increasing weakness, difficult time walking around the house, and he has had increasing diffuse joint pains. Today, he developed a fever at home of 101 and came to the emergency room. No focal respiratory symptoms, no difficulty with urination. He did have some nausea yesterday, but was eating light food today. No cough, no chest pain. He has been constipated with last bowel movement last . On presentation to the emergency room, he was found to have a systolic blood pressure of 63/43 and received 3 L of fluid with a rise in blood pressure only to 80/60. He has a pulse of 110 to 115, that has been stable and has been consistent while in the emergency room and his temperature was 100.6. Laboratory studies showed a hemoglobin of 11.8, white count 9.1, platelets 262. Normal coagulation studies with a sodium of 130, which is not far off his baseline; a creatinine of 0.79, also consistent with baseline; and a BUN and creatinine ratio of 23. He had an elevated C-reactive protein of 150 and a BNP that was normal at 126. Normal LFTs and albumin of 3.5. PAST MEDICAL HISTORY: 1. Diabetes. 2. High cholesterol. 3. Aqw-ylfqb-slxa lung cancer. 4. He presented with left shoulder pain and a CT scan that showed a left-sided pulmonary mass. PET scan showed disease in the shoulder as well as his primary , mediastinal lymphadenopathy, but no other sites of cancer. 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 His molecular studies were negative. Status post radiation to the shoulder and he has started chemotherapy. PAST SURGICAL HISTORY: No notable surgeries. MEDICATIONS: At home: 1. Metformin 500 mg 2 tablets b.i.d. 2. Morphine sulfate 15 mg q.12. 3. Ondansetron 4 mg p.r.n. 4. Percocet 1 to 2 tablets q.6 p.r.n. 5. Pravastatin 40 mg a day. ALLERGIES: None. FAMILY HISTORY: Mother had diabetes. Sister of homicide. SOCIAL HISTORY: He lives with significant other, who is with him in the ER. He has 2 children and daughter is primary source of support. He does not drink alcohol, but he is a pack-a-day smoker with a +50 pack year tobacco history. REVIEW OF SYSTEMS: As per HPI, otherwise 14-point review was negative. PHYSICAL EXAMINATION GENERAL: No overt distress on my exam. VITAL SIGNS: BP 95/66, pulse 113, respiratory rate 24, saturation 98% on a 2 L nasal cannula and his last temperature was 100.6. HEENT: Oral mucosa still looks a little dry. No oral lesions. Pupils are slightly pinpoint bilaterally, but reactive. LUNGS: With decreased breath sounds, some basilar crackles. Otherwise clear to auscultation. HEART: Tachycardic. Regular rhythm. S1 and S2. ABDOMEN: Nontender, nondistended. Good bowel sounds. No hepatosplenomegaly. EXTREMITIES: His feet are warm to the touch and he does have pulses. LABORATORY DATA: As noted above. DIAGNOSTIC STUDIES: Chest x-ray without a radiology read yet, but on my review , I think he has volume loss on the left side. No clear infiltrate. Urinalysis is pending. CT scan from 07/03/18 shows a left-sided mass and a postobstructive infiltrate with volume loss consistent with the chest x-ray received today. ASSESSMENT AND PLAN: A 63-year-old male with oxt-ifdck-iasp lung cancer, squamous cell, is currently on chemoimmunotherapy approaching cycle 3. He presents with a temperature of 101 at home and refractory hypotension in the emergency room. My suspicion is a viral illness with possible adrenal insufficiency secondary to immune-induced endocrine dysfunction. Sepsis is on the differential, though we have no source at this time and he has a normal white blood cell count, dehydration, cardiac dysfunction, neurogenic. While is blood pressure has been depressed he has not shown clear symptoms of hypoperfusion and has a normal lactic acid. 1. We will admit him overnight and continue IV fluids with NS at 200 cc/hr. ICU until blood pressure increased. Given question of adrenal insufficiency, we will send a cortisol level as well as TSH, free T4, testosterone, FSH, LH, and we will send ACTH and repeat cortisol in the morning. I will give him dexamethasone tonight 6 mg IV as not to interfere with testing for adrenal insufficiency in the a.m. 2. Infectious disease. Continue Zosyn until stable and follow for source of infection. Chest x-ray is done, but we will check a urine. 3. Check Echo and will check MRI brain. 4. Bwn-wqdln-dhng lung cancer. Hold therapy at this time. Maybe, I will treat him later in the week. 5. Diabetes. Glucose at [address] him on insulin sliding scale. We will hold his metformin in case additional imaging studies are needed. 6. He has been a full code and we will continue that at this time. [id number]/[facility] #: [id number] ABDI
[2018-09-11] MEDS: ZOSYN 3.375 GM Q8H per EXTENDED INFUSION IVPB SCH ×8 (00:29→23:44)
[2018-09-11] MEDS ORDERED: Insulin REGULAR(*) 1 UNITS UNIT SUBCUT SCH (02:00)
[2018-09-11] MEDS: Insulin LISPRO* 1 UNITS UNIT SUBCUT SCH ×5 (02:35→21:14)
[2018-09-11] MEDS: Dexamethasone IV* 4 MG/ML 1 ML (4 MG) IV SLOW PU SCH ×4 (02:36→23:44)
[2018-09-11] MEDS: NS 0.9% 1000 ML* 1,000 ML IV SCH ×3 (02:36→21:22)
[2018-09-11] MEDS ORDERED: Insulin LISPRO* 1 UNITS UNIT SUBCUT SCH (07:30)
[2018-09-11] MEDS: Docusate CAP* 100 MG PO SCH ×2 (08:39→21:05)
[2018-09-11] MEDS: Senna TAB PO SCH ×2 (08:39→21:05)
[2018-09-11 11:28] LABS: Hematocrit 34 % (42-52); Hemoglobin 11.1 g/dl (14.0-18.0); Mean Corpuscular HGB Conc 32 g/dl (31-36); Mean Corpuscular Hemoglobin 28 pg (27-31); Mean Corpuscular Volume 88 fL (80-94); Mean Platelet Volume 7.3 fL (7.4-10.4); Platelet Count 236 10^3/ul (150-450); Red Blood Count 3.91 10^6/ul (4.00-5.40); Red Cell Distribution Width 20 % (10.5-15)
[2018-09-11 11:49] LABS: BUN/Creatinine Ratio 31.1 (8-20); Calcium 8.7 mg/dL (8.6-10.3); EGFR Non-African American 132.7 (>60); Potassium 4.2 mmol/L (3.5-5.0)
[2018-09-11 12:00] LABS: ABS Basophils 0 10^3/ul (0-0.2); ABS Eosinophils 0 10^3/ul (0-0.6); ABS Lymphocytes 0.6 10^3/ul (1.0-4.8); ABS Monocytes 1.5 10^3/ul (0-0.8); ABS Neutrophils 10.9 10^3/ul (1.5-7.7); ABS Nucleated RBC 0 10^3/ul; Eosinophil % 0 %; Lymphocyte % 4.4 %; Nucleated Red Blood Cells % 0
--- NOTE | 2018-09-11 14:46 | ECHO ---
Patient: LINDA RAY [facility] Rec#: [id number] : 1955 Date: 09/11/2018 Age: 63y Height: 191 cm / 75.2 in Weight: 90.3 kg / 199.0 lbs Sex: M BSA: 2.2 Room#: ICU 7 Admit Date#: 09/10/2018 Type: Inpatient Referring: Star Vásquez MD Reading: Anam Boyd MD [employer] Assistant: Ramya Maciel RN RDCS CC: Wilma Musa MD Transthoracic Echocardiogram Indication: Hypotension BP: 107/77 HR: 96 Rhythm: NSR Findings History: HLD, DM, former smoker, prior alcohol abuse, lung cancer on chemotherapy and radiation therapy Technical Comments: The study quality is fair. The study is technically limited due to the patient's smoking history. Left Ventricle: The left ventricular chamber size is normal. There is no left ventricular hypertrophy. There is increased basal septal hypertrophy noted without evidence of an increased gradient across the left ventricular outflow tract. The septal knuckle measures 1.7 cm. There is global hypokinesis of the left ventricle with minor regional variation. There is moderately decreased left ventricular systolic function. The estimated ejection fraction is 35-40%. Abnormal left ventricular diastolic function is observed. Abnormal left ventricular diastolic filling is observed, consistent with impaired relaxation. Left Atrium: The left atrial chamber size is normal. Right Ventricle: The right ventricular chamber size and systolic function are within normal limits. Right Atrium: The right atrial cavity size is normal. Aortic Valve: The aortic valve is trileaflet. The aortic valve leaflets are mildly thickened. There is aortic annular calcification. There is a trace of aortic regurgitation. There is no evidence of aortic stenosis. Mitral Valve: There is mitral annular calcification. The mitral valve leaflets do not appear thickened. There is mild mitral regurgitation. There is no evidence of mitral stenosis. Tricuspid Valve: The tricuspid valve leaflets are normal. There is trace tricuspid regurgitation. Unable to estimate the right ventricular systolic pressure. There is no tricuspid stenosis. Pulmonic Valve: The pulmonic valve appears normal. There is trace to mild pulmonic regurgitation. Pericardium: There is no significant pericardial effusion. Aorta: There is no dilatation of the ascending aorta. The aortic arch is not well visualized. There is mild dilatation of the aortic root. Pulmonary Artery: The main pulmonary artery appears normal. Venous: The inferior vena cava is dilated. There is a greater than 50% respiratory change in the inferior vena cava dimension. Summary: There was not any prior study for comparison. Conclusions There is increased basal septal hypertrophy noted without evidence of an increased gradient across the left ventricular outflow tract. The septal knuckle measures 1.7 cm. There is global hypokinesis of the left ventricle with minor regional variation. There is moderately decreased left ventricular systolic function. The estimated ejection fraction is 35-40%, closer to 35%. There is mild mitral regurgitation. There is trace to mild pulmonic regurgitation. There is mild dilatation of the aortic root. Measurements Name Value Normal Range RVIDd (AP) 2D 2.7 cm (0.9 - 2.6) RVDdMajor (2D) 4.2 cm (2.2 - 4.4) RAd ISD 4CH 4.7 cm (3.4 - 4.9) RA (A4C)W 4.3 cm (2.9 - 4.6) IVSd (2D) 0.9 cm (0.6 - 1) LVPWd (2D) 0.9 cm (0.6 - 1) LVIDd (2D) 4.6 cm (3.6 - 5.4) LVIDs (2D) 3.7 cm - LV FS (2D) 20 % (25 - 45) Aortic Annulus 2.5 cm (1.4 - 2.6) Ao root diameter (2D) 3.6 cm (2.1 - 3.5) Ascending Ao 3.1 cm (2.1 - 3.4) LA dimension (AP) 2D 3.5 cm (2.3 - 3.8) LAd ISD 4CH 4.9 cm (2.9 - 5.3) LA ISD 4CH W 4.3 cm (2.5 - 4.5) Name Value Normal Range LA ESV BP (A/L) index 31.6 ml/m2 - Name Value Normal Range MV E-wave Vmax 0.84 m/sec - MV deceleration time 257 msec - MV A-wave Vmax 1 m/sec - MV E:A ratio 0.8 ratio - LV septal e' Vmax 0.06 m/sec - LV E:e' septal ratio 14 ratio - Name Value Normal Range AV Vmax 1.2 m/sec - AV VTI 21.4 cm - AV peak gradient 6 mmHg - AV mean gradient 3 mmHg - LVOT Vmax 0.77 m/sec - LVOT VTI 16.8 cm - LVOT peak gradient 2 mmHg - LVOT mean gradient 1 mmHg - Name Value Normal Range PV Vmax 0.71 m/sec -
[2018-09-11] MEDS ORDERED: Zolpidem TAB* 5 MG PO SCH (21:00)
[2018-09-11] MEDS: Enoxaparin(*) 40 MG/0.4 ML SYR SUBCUT SCH (21:13)
[2018-09-11] MEDS: Gabapentin CAP(*) 300 MG PO SCH (21:16)
[2018-09-12] MEDS: Gabapentin CAP(*) 300 MG PO SCH (04:05)
[2018-09-12 04:44] LABS: BUN/Creatinine Ratio 33.3 (8-20); Calcium 9.1 mg/dL (8.6-10.3); EGFR Non-African American 152.7 (>60)
[2018-09-12] MEDS: NS 0.9% 1000 ML* 1,000 ML IV SCH (05:36)
[2018-09-12] MEDS ORDERED: NS 0.9% 1000 ML* 1,000 ML IV SCH (07:49)
[2018-09-12] MEDS: Senna TAB PO SCH (08:27)
[2018-09-12] MEDS: ZOSYN 3.375 GM Q8H per EXTENDED INFUSION IVPB SCH ×2 (08:27)
[2018-09-12] MEDS: Docusate CAP* 100 MG PO SCH (08:27)
[2018-09-12] MEDS: Insulin LISPRO* 1 UNITS UNIT SUBCUT SCH ×2 (08:28→11:39)
--- NOTE | 2018-09-12 11:03 | DS ---
- Discharge Summary Admission Date: 09/10/2018 Discharge Date: 09/12/2018 Discharge Diagnosis: 1. Hypotension: appears r/t dehydration, resolved 2. Fever: unclear source, resolved, will d/c home on Abx for full week course 3. Lung Cancer: rapid steroid taper (4mg daily x4 days starting today) and re- eval. resuming therapy next week with OV Discharge Medications: Medication Instructions Recorded Confirmed Type Aspirin [Aspir 81] 81 mg PO QAM 08/07/13 09/10/18 History Empagliflozin/Linagliptin 1 tab PO QAM 07/04/18 09/10/18 History [Glyxambi 10 mg-5 mg Tablet] Morphine Sulfate [Morphine Sulfate 30 mg PO DAILY PRN 07/04/18 09/10/18 History ER] Oxycodone HCl 5 mg PO Q4H PRN 07/04/18 09/10/18 History Pravastatin Sodium 40 mg PO QAM 07/04/18 09/10/18 History metFORMIN* [Glucophage 1000 MG TAB 1,000 mg PO BID 07/04/18 09/10/18 History *] Amoxicillin/Clavulanate TAB* 875 mg PO BID #10 tab 09/12/18 Rx [Augmentin TAB 875*] Dexamethasone TAB* [Decadron TAB*] 4 mg PO DAILY #3 tab 09/12/18 Rx Docusate CAP* [Colace Cap*] 100 mg PO BID cap 09/12/18 Rx Gabapentin CAP(*) [Neurontin 300 300 mg PO Q8H #90 cap 09/12/18 Rx CAP(*)] Magnesium Hydroxide LIQ* [Milk of 30 ml PO Q4H PRN udc 09/12/18 Rx Magnesia LIQ*] Senna TAB* [Senokot TAB*] 1 tab PO BID tab 09/12/18 Rx Hospital Course: Please see admission note for full H&P, however, briefly, Mr. Canales is well known to our service due to his unfortunate diagnosis of metastatic squamous cell lung cancer currently receiving Carboplatin/Paclitaxel/Pembroluzimab s/p C2. He presented to the ER on 09/10 following a full 24 hours of feeling poorly with acute onset. No obvious insult, though was very busy over the weekend. On presentation he had a fever and hypotension and was admitted to the ICU where he recovered quickly with IV fluids. He has not had a fever in > 24 hours and feels very well today. 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 As such he will be discharged on PO dex. for 4 days (first dose today) and repeat an AM cortisol and testosterone as an outpatient. During his admission there was discussion of pursuing an MRI of the pituitary, however with his rapid improvement we can pursue this as an outpatient. He will be d/c'd on Augmentin to complete a full 7 day course of abx. and will f/u in 1 week with JAZMYNE Fong to re-eval. resuming therapy (1 week delay). Plan of care reviewed at length and all questions answered. >40 min spent with >50% face to face counseling
[2018-09-12] MEDS: Dexamethasone IV* 4 MG/ML 1 ML (4 MG) IV SLOW PU SCH (11:39)
[2018-09-12 12:22] VITALS: BP 127/93
== END 2018-09-12 13:26 | disposition home or self-care (01) | DRG 315 ==
LOC: ED 17:36 → ICU 21:03 → MEDTELE 09-11 11:17 → UNDODISIN 09-12 13:40
PROVIDERS: ADMIT Internal Medicine Hematology & Oncology; ATTEND Internal Medicine Hematology & Oncology
DX: I95.9 Hypotension, unspecified (principal); C34.90 Malignant neoplasm of unspecified part of unspecified bronchus or lung; C79.51 Secondary malignant neoplasm of bone; R57.9 Shock, unspecified; E86.0 Dehydration; Z92.21 Personal history of antineoplastic chemotherapy; I10 Essential (primary) hypertension; E11.9 Type 2 diabetes mellitus without complications; E78.5 Hyperlipidemia, unspecified; F17.210 Nicotine dependence, cigarettes, uncomplicated; J44.9 Chronic obstructive pulmonary disease, unspecified; E11.40 Type 2 diabetes mellitus with diabetic neuropathy, unspecified; G43.909 Migraine, unspecified, not intractable, without status migrainosus; R50.9 Fever, unspecified; F32.9 Major depressive disorder, single episode, unspecified; F41.9 Anxiety disorder, unspecified; Z79.82 Long term (current) use of aspirin; Z83.3 Family history of diabetes mellitus; Z79.84 Long term (current) use of oral hypoglycemic drugs
CPT/HCPCS: 36415; 71045; 80048; 80053; 81003; 81015; 82024; 82397; 82533; 82550; 83605; 83880; 84403; 84439; 84443; 84484; 85025; 85610; 85730; 86140; 87040; 87641; 93306; 99223; 99233; 99239; 99285; A9270-GY; G8978-GP-CI; G8979-GP-CH; J1100; J1642; J1650; J2543; J3370